=== PATIENT | female | born 1945 | race Hispanic/Latino ===

== ENCOUNTER 2022-02-27 11:31 | Inpatient (IN) | payer MEDICARE, OTHER ==
[~2022-02-27] VITALS: Ht 160 cm; Wt 72.6 kg
[2022-02-27 12:42] LABS: BASOPHILS # (AUTO) 0.1 (0.0-0.1); BASOPHILS % 0.3 % (0.0-1.0); HEMATOCRIT 29.2 % (34.2-44.1); HEMOGLOBIN 9.4 g/dL (12.0-16.0); LYMPHOCYTES # (AUTO) 1.8 (1.0-3.2); LYMPHOCYTES % 7.2 % (18.0-39.1); MEAN CORPUSCULAR HEMOGLOBIN 26.3 pg (28-32); MEAN CORPUSCULAR HGB CONC 32.2 g/dL (31-35); MEAN CORPUSCULAR VOLUME 81.8 fL (81-99); MONOCYTES # (AUTO) 1.9 (0.2-0.8); MONOCYTES % 7.3 % (4.4-11.3); NEUTROPHILS # (AUTO) 21.4 (2.1-6.9); NEUTROPHILS % 83.8 % (38.7-80.0); PLATELET COUNT 502 x10e3/uL (140-360); RED BLOOD COUNT 3.57 x10e6/uL (3.6-5.1); RED CELL DISTRIBUTION WIDTH 15.3 % (11.7-14.4)
[2022-02-27 13:07] LABS: ANION GAP 15.2 mmol/L (8-16); CALCIUM 9.2 mg/dL (8.4-10.2); CREATININE, SERUM 1.66 mg/dL (0.57-1.11)
[2022-02-27 13:09] LABS: POTASSIUM 5.2 mmol/L (3.5-5.1)
[2022-02-27] MEDS ORDERED: LACTATED RINGER'S 1,000 ML IV ONE (13:30)
[2022-02-27] MEDS ORDERED: INSULIN REGULAR, HUMAN 100 UNIT/1 ML SQ ONE (13:30)
[2022-02-27 13:35] LABS: CREATINE KINASE MB 0.4 ng/mL (0-5.0)
[2022-02-27] MEDS ORDERED: DEXTROSE 50% SYRINGE 50 ML IV PRN ×2 (13:45→20:45)
[2022-02-27] MEDS ORDERED: CEFTRIAXONE 1 GM VIAL IM ONE (14:30)
[2022-02-27 15:16] LABS: CLARITY,URINE SL CLOUDY (CLEAR); COLOR,URINE STRAW (YELLOW); KETONES,URINE NEGATIVE (NEGATIVE); LEUKOCYTE ESTERASE ,URINE NEGATIVE (NEGATIVE); NITRITE,URINE NEGATIVE (NEGATIVE); PROTEIN,URINE DIPSTICK NEGATIVE (NEGATIVE); URINE UROBILINOGEN 1 mg/dL (0.2 - 1)
[2022-02-27 15:28] LABS: BACTERIA,URINE MANY /HPF
[2022-02-27 15:50] VITALS: BP 151/52
[2022-02-27] MEDS ORDERED: ATORVASTATIN CA20 MG PO (16:30)
[2022-02-27] MEDS ORDERED: ASPIRIN81 MG PO (16:30)
[2022-02-27] MEDS ORDERED: FERROUS SULFAT324 MG PO (16:30)
[2022-02-27] MEDS ORDERED: GLIPIZIDE5 MG PO (16:30)
[2022-02-27] MEDS ORDERED: MULTI-VITAMIN1 EACH PO (16:30)
[2022-02-27] MEDS ORDERED: LISINOPRIL5 MG PO (16:30)
[2022-02-27] MEDS ORDERED: PANTOPRAZOLE SO40 MG PO (16:30)
[2022-02-27 16:31] VITALS: BP 151/52
[2022-02-27 16:41] VITALS: BP 151/52
[2022-02-27] MEDS: SODIUM CHLORIDE 0.9% 1000ML 1,000 ML IV SCH (17:19)
[2022-02-27 20:00] VITALS: BP 121/39
[2022-02-27] MEDS ORDERED: POLYETHYLENE GLYCOL 3350 17 GM PACK PO PRN (20:45)
[2022-02-27] MEDS ORDERED: ONDANSETRON HCL INJ 2MG/ML 2ML 2 MG/ML VIAL IV PRN (20:45)
[2022-02-27] MEDS ORDERED: METOPROLOL TARTRATE INJ 1 MG/ML VIAL IV PRN (20:45)
[2022-02-27] MEDS: ACETAMINOPHEN 325 MG TAB PO PRN (21:19)
[2022-02-27] MEDS: INSULIN REGULAR, HUMAN 100 UNIT/1 ML SQ SCH (21:42)
[2022-02-27 22:33] VITALS: BP 121/39
[2022-02-28] VITALS (7 sets, daily range): BP systolic 102–130; BP diastolic 45–53
[2022-02-28] MEDS: SODIUM CHLORIDE 0.9% 1000ML 1,000 ML IV SCH ×3 (02:22→21:06)
[2022-02-28 06:07] LABS: BASOPHILS # (AUTO) 0.1 (0.0-0.1); BASOPHILS % 0.2 % (0.0-1.0); EOSINOPHILS # (AUTO) 0.1 (0.0-0.4); EOSINOPHILS % 0.5 % (0.0-6.0); HEMATOCRIT 26.2 % (34.2-44.1); HEMOGLOBIN 8.2 g/dL (12.0-16.0); LYMPHOCYTES # (AUTO) 2.6 (1.0-3.2); LYMPHOCYTES % 12.6 % (18.0-39.1); MEAN CORPUSCULAR HEMOGLOBIN 26.1 pg (28-32); MEAN CORPUSCULAR HGB CONC 31.3 g/dL (31-35); MEAN CORPUSCULAR VOLUME 83.4 fL (81-99); MONOCYTES # (AUTO) 1.6 (0.2-0.8); NEUTROPHILS % 77.8 % (38.7-80.0); PLATELET COUNT 443 x10e3/uL (140-360); RED BLOOD COUNT 3.14 x10e6/uL (3.6-5.1); RED CELL DISTRIBUTION WIDTH 15.4 % (11.7-14.4)
[2022-02-28 06:21] LABS: INR 1.25; PROTHROMBIN TIME 16.8 seconds (11.9-14.5)
[2022-02-28 06:22] LABS: PARTIAL THROMBOPLASTIN TIME 36.7 seconds (23.8-35.5)
[2022-02-28 06:35] LABS: ALBUMIN 1.8 g/dL (3.5-5.0); ALBUMIN/GLOBULIN RATIO 0.4 (0.8-2.0); ALKALINE PHOSPHATASE 144 IU/L (40-150); ANION GAP 13.5 mmol/L (8-16); BLOOD UREA NITROGEN 18 mg/dL (7-26); BUN/CREATININE RATIO 15 (6-25); CALCIUM 8.5 mg/dL (8.4-10.2); CARBON DIOXIDE 22 mmol/L (22-29); CHLORIDE 105 mmol/L (98-107); CHOL/HDL RATIO 2.4 (3.0-3.6); CHOLESTEROL 98 MD/DL (0-199); CREATININE, SERUM 1.18 mg/dL (0.57-1.11); GLUCOSE 239 mg/dL (74-118); HDL CHOLESTEROL 41 MG/DL (40-60); LDL CHOLESTEROL 43 MG/DL (60-130); POTASSIUM 4.5 mmol/L (3.5-5.1); SODIUM 136 mmol/L (136-145); TRIGLYCERIDES 71 MG/DL (0-149)
[2022-02-28 06:36] LABS: ALANINE AMINOTRANSFERASE < 6 IU/L (0-55)
[2022-02-28 07:00] LABS: THYROID STIMULATING HORMONE 1.004 uIU/mL (0.350-4.940)
[2022-02-28] MEDS: INSULIN REGULAR, HUMAN 100 UNIT/1 ML SQ SCH ×2 (08:30→12:14)
[2022-02-28] MEDS: FAMOTIDINE 20 MG TAB PO SCH ×2 (09:44→16:30)
[2022-02-28] MEDS: DOCUSATE SODIUM 100 MG CAP PO SCH ×2 (09:44→17:00)
[2022-02-28] MEDS: ALBUTEROL/IPRATROPIUM 3 ML NEB NEB SCH ×4 (11:00→23:19)
[2022-02-28] MEDS: GUAIFENESIN 600MG/DEXTROMETHORPHAN 30MG TABSR PO SCH ×2 (12:37→21:29)
[2022-02-28] MEDS: ACETAMINOPHEN 325 MG TAB PO PRN (13:53)
[2022-02-28] MEDS: INSULIN LISPRO 100 UNIT/1 ML 3ML VIAL SQ SCH ×3 (17:40→20:34)
[2022-02-28] MEDS ORDERED: INSULIN GLARGINE 100 UNITS/ML VIAL SQ SCH (21:00)
[2022-03-01] VITALS (8 sets, daily range): BP systolic 99–143; BP diastolic 46–87
[2022-03-01] MEDS: ACETAMINOPHEN 325 MG TAB PO PRN (03:43)
[2022-03-01 05:08] LABS: BASOPHILS % 0.3 % (0.0-1.0); EOSINOPHILS # (AUTO) 0.1 (0.0-0.4); EOSINOPHILS % 0.5 % (0.0-6.0); HEMATOCRIT 24.3 % (34.2-44.1); HEMOGLOBIN 7.7 g/dL (12.0-16.0); LYMPHOCYTES # (AUTO) 1.8 (1.0-3.2); LYMPHOCYTES % 11.9 % (18.0-39.1); MEAN CORPUSCULAR HEMOGLOBIN 26.2 pg (28-32); MEAN CORPUSCULAR HGB CONC 31.7 g/dL (31-35); MEAN CORPUSCULAR VOLUME 82.7 fL (81-99); MONOCYTES # (AUTO) 1.1 (0.2-0.8); MONOCYTES % 7.1 % (4.4-11.3); NEUTROPHILS # (AUTO) 12.3 (2.1-6.9); NEUTROPHILS % 79.2 % (38.7-80.0); PLATELET COUNT 450 x10e3/uL (140-360); RED BLOOD COUNT 2.94 x10e6/uL (3.6-5.1); RED CELL DISTRIBUTION WIDTH 15.3 % (11.7-14.4)
[2022-03-01 05:38] LABS: ALBUMIN 1.7 g/dL (3.5-5.0); ALBUMIN/GLOBULIN RATIO 0.4 (0.8-2.0); ANION GAP 14.2 mmol/L (8-16); CREATININE, SERUM 0.88 mg/dL (0.57-1.11); POTASSIUM 4.2 mmol/L (3.5-5.1)
[2022-03-01 06:21] LABS: FERRITIN 398.25 ng/mL (4.63-204.00)
[2022-03-01] MEDS: ALBUTEROL/IPRATROPIUM 3 ML NEB NEB SCH ×5 (07:20→23:00)
[2022-03-01] MEDS: INSULIN LISPRO 100 UNIT/1 ML 3ML VIAL SQ SCH ×7 (07:30→21:00)
[2022-03-01] MEDS: FAMOTIDINE 20 MG TAB PO SCH ×2 (09:01→16:30)
[2022-03-01] MEDS: DOCUSATE SODIUM 100 MG CAP PO SCH ×2 (09:03→17:00)
[2022-03-01] MEDS: GUAIFENESIN 600MG/DEXTROMETHORPHAN 30MG TABSR PO SCH ×2 (09:03→21:00)
[2022-03-01] MEDS: SODIUM CHLORIDE 0.9% 1000ML 1,000 ML IV SCH ×2 (09:59→17:45)
[2022-03-01] MEDS ORDERED: INSULIN GLARGINE 100 UNITS/ML VIAL SQ SCH (21:00)
[2022-03-01] MEDS: SODIUM FERRIC GLUCONATE COMPLX 125 MG in SODIUM CHLORIDE 0.9% 100 ML 100 ML IV SCH (23:00)
[2022-03-02 00:40] VITALS: BP 146/51
[2022-03-02] MEDS: ALBUTEROL/IPRATROPIUM 3 ML NEB NEB SCH ×4 (03:00→14:20)
[2022-03-02] MEDS: ACETAMINOPHEN 325 MG TAB PO PRN (04:30)
[2022-03-02] MEDS: SODIUM CHLORIDE 0.9% 1000ML 1,000 ML IV SCH ×2 (05:00→14:38)
[2022-03-02 05:45] VITALS: BP 147/71
[2022-03-02 06:34] LABS: BASOPHILS # (AUTO) 0.1 (0.0-0.1); BASOPHILS % 0.5 % (0.0-1.0); EOSINOPHILS # (AUTO) 0.1 (0.0-0.4); EOSINOPHILS % 0.8 % (0.0-6.0); HEMATOCRIT 28.4 % (34.2-44.1); HEMOGLOBIN 8.7 g/dL (12.0-16.0); LYMPHOCYTES # (AUTO) 1.8 (1.0-3.2); LYMPHOCYTES % 16.7 % (18.0-39.1); MEAN CORPUSCULAR HEMOGLOBIN 25.8 pg (28-32); MEAN CORPUSCULAR HGB CONC 30.6 g/dL (31-35); MEAN CORPUSCULAR VOLUME 84.3 fL (81-99); MONOCYTES # (AUTO) 0.8 (0.2-0.8); NEUTROPHILS # (AUTO) 7.9 (2.1-6.9); NEUTROPHILS % 73.9 % (38.7-80.0); PLATELET COUNT 494 x10e3/uL (140-360); RED BLOOD COUNT 3.37 x10e6/uL (3.6-5.1); RED CELL DISTRIBUTION WIDTH 15.9 % (11.7-14.4)
[2022-03-02 07:02] LABS: ALBUMIN 1.8 g/dL (3.5-5.0); ALBUMIN/GLOBULIN RATIO 0.4 (0.8-2.0); CALCIUM 8.7 mg/dL (8.4-10.2); CREATININE, SERUM 0.81 mg/dL (0.57-1.11)
[2022-03-02 07:50] VITALS: BP 125/54
[2022-03-02 08:06] VITALS: BP 125/54
[2022-03-02] MEDS ORDERED: LISINOPRIL 2.5 MG TAB PO SCH (09:00)
[2022-03-02] MEDS ORDERED: AZITHROMYCIN 250 MG TAB PO SCH (09:00)
[2022-03-02] MEDS: INSULIN LISPRO 100 UNIT/1 ML 3ML VIAL SQ SCH ×5 (09:24→16:30)
[2022-03-02] MEDS: FAMOTIDINE 20 MG TAB PO SCH ×2 (09:24→16:51)
[2022-03-02] MEDS: DOCUSATE SODIUM 100 MG CAP PO SCH ×2 (09:24→16:51)
[2022-03-02] MEDS: GUAIFENESIN 600MG/DEXTROMETHORPHAN 30MG TABSR PO SCH (09:24)
[2022-03-02 11:15] VITALS: BP 130/66
[2022-03-02] MEDS: SODIUM FERRIC GLUCONATE COMPLX 125 MG in SODIUM CHLORIDE 0.9% 100 ML 100 ML IV SCH (11:58)
[2022-03-02] MEDS ORDERED: ONDANSETRON HCL 4 MG ORAL DISINTEGRATING TAB PO PRN (12:00)
[2022-03-02] MEDS ORDERED: LACTULOSE SYRUP 20 GM/30 ML UDC PO PRN (13:30)
[2022-03-02 15:54] VITALS: BP 115/59
[2022-03-02] MEDS ORDERED: INSULIN LISPRO 100 UNIT/1 ML 3ML VIAL SQ SCH (16:30)
[2022-03-02] MEDS: BISACODYL 10 MG SUPP PR ONE ×2 (17:56→19:44)
[2022-03-02] MEDS ORDERED: Insulin Lispro SQ ×2 (18:35)
[2022-03-02] MEDS ORDERED: MUCINEX DM ER1 EACH PO (18:35)
[2022-03-02] MEDS ORDERED: CEFUROXIME500 MG PO (18:35)
[2022-03-02] MEDS ORDERED: LACTULOSE20 GM/30 M PO (18:35)
[2022-03-02] MEDS ORDERED: Insulin Glargine SQ (18:35)
[2022-03-02] MEDS ORDERED: AZITHROMYCIN250 MG PO (18:35)
[2022-03-02] MEDS ORDERED: Docusate Sodium PO (18:35)
[2022-03-02] MEDS ORDERED: ACETAMINOPHEN325 M1 PO (18:35)
== END 2022-03-02 20:10 | disposition home or self-care (01) | DRG 871 ==
LOC: ER 12:20 → ERHOLD 13:37 → MED/SURG2 15:41
PROVIDERS: ADMIT Family Medicine; ATTEND Internal Medicine
DX: A41.51 Sepsis due to Escherichia coli [E. coli] (principal); E11.10 Type 2 diabetes mellitus with ketoacidosis without coma; G93.41 Metabolic encephalopathy; N39.0 Urinary tract infection, site not specified; E87.1 Hypo-osmolality and hyponatremia; N17.9 Acute kidney failure, unspecified; Z16.24 Resistance to multiple antibiotics; I25.2 Old myocardial infarction; E86.0 Dehydration; J20.9 Acute bronchitis, unspecified; E87.5 Hyperkalemia; R62.7 Adult failure to thrive; Z68.28 Body mass index [BMI] 28.0-28.9, adult; I25.10 Atherosclerotic heart disease of native coronary artery without angina pectoris; S09.90XA Unspecified injury of head, initial encounter; Y92.009 Unspecified place in unspecified non-institutional (private) residence as the place of occurrence of the external cause; M54.9 Dorsalgia, unspecified; Z79.4 Long term (current) use of insulin; R65.20 Severe sepsis without septic shock; K59.00 Constipation, unspecified; Z95.5 Presence of coronary angioplasty implant and graft; E11.69 Type 2 diabetes mellitus with other specified complication; E78.49 Other hyperlipidemia; I11.0 Hypertensive heart disease with heart failure; I50.9 Heart failure, unspecified; W01.198A Fall on same level from slipping, tripping and stumbling with subsequent striking against other object, initial encounter; D64.9 Anemia, unspecified
CPT/HCPCS: 36415; 70450; 71045; 74018; 80048; 80053; 80061; 81001; 82140; 82550; 82553; 82607; 82728; 82746; 82948; 83036; 83540; 83605; 84443; 84466; 84484; 85025; 85045; 85610; 85730; 87040; 87086; 87186; 93005; 94799; 96360; 99251; 99284; J0456; J0696; J1815; J1817; J2916; J7030; J7050; J7121; J7799; Q0162